=== PATIENT | female | born 1990 | race Two or more races ===

== ENCOUNTER 2020-01-19 06:00 | Outpatient (CLI) | payer OTHER | END 2020-01-19 15:51 | disposition home or self-care (01) | LOC: PPH VACUNA 06:00 | DX: Z23 Encounter for immunization (principal) ==

== ENCOUNTER → 2020-02-19 12:21 | Outpatient (CLI) | payer OTHER | END | disposition home or self-care (01) | LOC: LAB 12:21 | PROVIDERS: ATTEND Anesthesiology | DX: Z20.828 Contact with and (suspected) exposure to other viral communicable diseases (principal) ==

== ENCOUNTER 2020-07-03 07:24 | Day surgery (SDC) | payer OTHER ==
[~2020-07-03 07:24] MED LIST: ATORVASTATIN CA20 MG PO; MULTIPLE VITAM1 EACH PO; PEPCID AC20 MG PO; VITAMIN C PO; [UNRECOGNIZED DRUG - OTHER] PO
[2020-07-03] MEDS ORDERED: NEURONTIN600 M1 PO (12:25)
[2020-07-03] MEDS ORDERED: PERCOCET 5-3251 EACH PO (12:25)
[2020-07-03] MEDS ORDERED: COLACE100 MG PO (12:25)
== END 2020-07-03 16:00 | disposition home or self-care (01) ==
LOC: CIR.AMB 07:24
PROVIDERS: ATTEND Surgery
DX: K43.0 Incisional hernia with obstruction, without gangrene (principal); Z20.822 Contact with and (suspected) exposure to COVID-19

== ENCOUNTER 2020-11-28 16:25 | Outpatient (CLI) | payer OTHER ==
[~2020-11-28 16:25] MED LIST changes: +COLACE100 MG PO; +NEURONTIN600 M1 PO; +PERCOCET 5-3251 EACH PO
== END 2020-11-28 16:28 | disposition home or self-care (01) ==
LOC: LAB 16:25
PROVIDERS: ATTEND Emergency Medicine Pediatric Emergency Medicine
DX: Z03.818 Encounter for observation for suspected exposure to other biological agents ruled out (principal)

== ENCOUNTER 2021-01-29 08:00 | Outpatient (CLI) | payer OTHER | END 2021-01-29 08:30 | disposition home or self-care (01) | LOC: PPH VACUNA 08:00 | PROVIDERS: ATTEND Emergency Medicine Pediatric Emergency Medicine | DX: Z23 Encounter for immunization (principal) ==